=== PATIENT | male | born 1960 | race Hispanic/Latino ===

== ENCOUNTER 2020-04-20 10:53 | Emergency (ER) | payer BC, OTHER ==
[~2020-04-20] VITALS: Ht 170.2 cm; Wt 94.3 kg
[2020-04-20] MEDS ORDERED: TOPROL XL50 MG PO (11:03)
--- OUTSIDE RECORDS SUMMARY | 2020-04-20 11:25 | XMS ---
PreManage Notification: TROY ELLISON Security Credit Counselor Events No recent Security Events currently on file CRITERIA MET - [facility] - 2 Visits in 30 Days CARE PROVIDERS There are no care providers on record at this time. Ritchie has no Care Guidelines for this patient. [facility] VISIT COUNT (12 MO.) [address] [facility] TOTAL 2 NOTE: Visits indicate total known visits. ED/[facility] VISIT TRACKING (12 MO.) 04/20/2020 10:54 [facility] [place] TYPE: Emergency COMPLAINT: - MULTIPLE COMPLAINTS 04/20/2020 00:00 [facility] [place] TYPE: Emergency COMPLAINT: - MULTIPLE COMPLAINTS INPATIENT VISIT TRACKING (12 MO.) No inpatient visits to display in this time frame [email or web address]
[2020-04-20] MEDS ORDERED: VENTOLIN HFA18 GM INH (11:48)
--- NOTE | 2020-04-20 20:12 | EKG ---
[facility] [address] [place], [place] [address] Signed Normal sinus rhythm Normal ECG No previous ECGs available Confirmed by STEVEN RUBY MD [id number] on 04/20/2020 8:12:23 PM Electronically Signed By: STEVEN RUBY MD 04/20/202011 PATIENT NAME: TROY ELLISON Electrocardiogram DATE OF : 62 PHYSICIAN: STEVEN RUBY MD REPORT #: [id number] REPORT IS CONFIDENTIAL AND NOT TO BE RELEASED WITHOUT AUTHORIZATION
== END 2020-04-20 12:02 | disposition home or self-care (01) ==
LOC: ED 10:53
DX: R05 Cough (principal); R68.83 Chills (without fever); R07.89 Other chest pain; Z20.828 Contact with and (suspected) exposure to other viral communicable diseases; I10 Essential (primary) hypertension
CPT/HCPCS: 71045; 93005; 93010; 99284-25